=== PATIENT | male | born 1960 | race American Indian/Alaskan Native ===

== ENCOUNTER 2016-07-15 18:09 | Emergency (ER) | payer MEDICAID ==
[~2016-07-15] VITALS: Ht 172.7 cm; Wt 75.0 kg
[~2016-07-15 18:09] MED LIST: ERGO500047 PO; IBUP-1222 PO; LISI-167 PO; MELO-184 PO; METO25TA35 PO
[2016-07-15 22:02] VITALS: BP 148/88
== END 2016-07-15 22:07 | disposition home or self-care (01) ==
LOC: ED 19:20
DX: F10.120 Alcohol abuse with intoxication, uncomplicated (principal); E11.9 Type 2 diabetes mellitus without complications
CPT/HCPCS: 99283

== ENCOUNTER 2016-07-16 12:04 | Emergency (ER) | payer MEDICAID ==
[~2016-07-16] VITALS: Ht 177.8 cm; Wt 82.0 kg
[2016-07-16 15:00] VITALS: BP 111/60
== END 2016-07-16 15:50 | disposition left against medical advice (07) ==
LOC: ED 13:51
DX: F10.220 Alcohol dependence with intoxication, uncomplicated (principal); E11.9 Type 2 diabetes mellitus without complications; I10 Essential (primary) hypertension
CPT/HCPCS: 99283

== ENCOUNTER 2018-10-16 16:55 | Emergency (ER) | payer MEDICAID ==
[~2018-10-16] VITALS: Ht 175.3 cm; Wt 94.9 kg
[~2018-10-16 16:55] MED LIST changes: -MELO-184 PO; +MELO15TA24 PO
[2018-10-16 17:08] VITALS: BP 127/86
--- NOTE | 2018-10-16 17:09 | NUR ---
BIB [facility]- +ETOH, mechanical GLF, lac to L eyebrow. Lac with dried blood on it, pt unwilling to let EMS staff or this RN clean it. Pt uncooperative with EMS staff and this RN. Pt yelling "fuck you! You can't touch me!" to assessment questions asked. Pt given urinal to void. Pt urinated on floor. Pt ambulatory to bed with unsteady gait, able to position self for comfort. Continuous oxygen and BP Monitors applied, all safety measures observed. Pt refusing to get into a gown at this time.
--- NOTE | 2018-10-16 17:24 | NUR ---
Pt out of bed, walking out of unit to radiology. Pt advised that for him to be treated he must stay in bed in his room in the ED. Pt refusing this, states "Fuck you all I'm getting out of here." Pt ambulatory unassisted out [place] entrance shouting threats and profanities at staff members. Security contacted to ensure pt off property safely. Charge nurse advised of this.
== END 2018-10-16 17:39 | disposition left against medical advice (07) ==
LOC: ED 17:33
DX: F10.10 Alcohol abuse, uncomplicated (principal); Z53.21 Procedure and treatment not carried out due to patient leaving prior to being seen by health care provider